=== PATIENT | female | born 1980 | race Caucasian/White ===

== ENCOUNTER 2019-04-21 17:42 | Emergency (ER) | payer MEDICAID ==
[~2019-04-21] VITALS: Ht 180.3 cm; Wt 59.1 kg
[2019-04-21 17:56] VITALS: BP 140/108
[2019-04-21] MEDS ORDERED: IBUP-1984 PO (18:36)
[2019-04-21] MEDS ORDERED: BACDS PO (18:36)
== END 2019-04-21 19:04 | disposition home or self-care (01) ==
LOC: ER 17:43
DX: L03.116 Cellulitis of left lower limb (principal); M79.672 Pain in left foot; Z79.899 Other long term (current) drug therapy
CPT/HCPCS: 73630; 99283